=== PATIENT | male | born 1980 | race Caucasian/White ===

== ENCOUNTER 2018-04-28 10:09 | Emergency (ER) | payer BC ==
[2018-04-28 10:27] VITALS: BP 139/86
--- NOTE | 2018-04-28 10:41 | EDM.PDOC ---
ED HPI GENERAL MEDICAL PROBLEM - General Chief Complaint: General Stated Complaint: SCRATCH ON LEFT EYE Time Seen by Provider: 04/28/18 10:32 Source of Information: Reports: Patient History Limitations: Reports: No Limitations - History of Present Illness INITIAL COMMENTS - FREE TEXT/NARRATIVE: Patient presents with a red, irritated left eye that he thinks he scratched while putting in his contacts yesterday. He says this has happened before. He denies any visual change or loss. He denies any other pain or problems today. - Related Data Allergies Allergy/AdvReac Type Severity Reaction Status Date / Time No Known Drug Allergies Allergy Cannot Verified 04/28/18 10:27 Remember Home Meds: Home Meds atorvaSTATin [Lipitor] 10 mg PO DAILY 04/28/18 [History] Social & Family History - Tobacco Use Smoking Status *Q: Former Smoker Used Tobacco, but Quit: Yes Month/Year Tobacco Last Used: 2009 - Caffeine Use Caffeine Use: Reports: Soda - Alcohol Use Days Per Week of Alcohol Use: 1 Number of Drinks Per Day: 2 Total Drinks Per Week: 2 - Recreational Drug Use Recreational Drug Use: No ED ROS GENERAL - Review of Systems Review Of Systems: ROS reveals no pertinent complaints other than HPI. ED EXAM, GENERAL - Physical Exam Exam: See Below Exam Limited By: No Limitations General Appearance: Alert, WD/WN, No Apparent Distress Eye Exam: Right Eye: Normal Inspection, Left Eye: Conjunctival Injection, Other (Fluorescein stain uptake along a scratch of inferior conjunctiva), Bilateral Eye: EOMI, PERRL Ears: Normal External Exam, Hearing Grossly Normal Nose: Normal Inspection, No Blood Throat/Mouth: Normal Inspection, Normal Lips, Normal Voice, No Airway Compromise Head: Atraumatic, Normocephalic Neck: Normal Inspection, Full Range of Motion Respiratory/Chest: No Respiratory Distress, Lungs Clear, Normal Breath Sounds, No Accessory Muscle Use Cardiovascular: Regular Rate, Rhythm, No Murmur Extremities: Normal Inspection, Normal Range of Motion Neurological: Alert, Oriented, Normal Cognition, No Motor/Sensory Deficits Psychiatric: Normal Affect, Normal Mood Skin Exam: Warm, Dry, Intact, Normal Color, No Rash Course - Vital Signs Last Recorded V/S: Last Vital Signs Temp 98.0 F 04/28/18 10:23 Pulse 83 04/28/18 10:23 Resp 20 04/28/18 10:23 BP 139/86 04/28/18 10:23 Pulse Ox 97 04/28/18 10:23 - Re-Assessments/Exams Free Text/Narrative Re-Assessment/Exam: 04/28/18 11:05 An Rx for Cipro ophthalmic solution was sent with him to get from his pharmacy since we don't have available today in ER. Tetracaine ophthalmic drops (2) were placed in left eye. Discussed expectations and treatment plan. Patient stable at discharge. Departure - Departure Time of Disposition: 11:04 Disposition: Home, Self-Care 01 Condition: Good Clinical Impression: Abrasion of conjunctiva, left Qualifiers: Encounter type: initial encounter Qualified Code(s): S05.02XA - Injury of conjunctiva and corneal abrasion without foreign body, left eye, initial encounter - Discharge Information Referrals: Bladimir Russell [facility]ATOR [Primary Care Provider] - Additional Instructions: 1. Use the antibiotic eye drops as directed. 2. Follow up with your PCP or eye doctor if this isn't improving in 48 hours. 3. Follow up sooner, or go to ER if worsening.
[2018-04-28] MEDS ORDERED: Tetracaine HCl/PF 0.5% 4 ML Bottle EYELF ONE (10:46)
[2018-04-28] MEDS ORDERED: Ciprofloxacin 0.3% Ophth Soln 2.5 ML Bottle EYELF SCH (11:00)
== END 2018-04-28 11:10 | disposition home or self-care (01) ==
LOC: KA.ED 10:09
DX: S05.02XA Injury of conjunctiva and corneal abrasion without foreign body, left eye, initial encounter (principal); Z79.899 Other long term (current) drug therapy; Z87.891 Personal history of nicotine dependence; X50.9XXA Other and unspecified overexertion or strenuous movements or postures, initial encounter
CPT/HCPCS: 99283

== ENCOUNTER 2025-02-03 06:57 | Day surgery (SDC) | payer OTHER ==
[2025-02-03] MEDS ORDERED: Sodium Chloride 0.9% 10 ML Syringe FLUSH PRN (07:00)
[2025-02-03] MEDS ORDERED: Midazolam 1 MG/ML 2 ML SDV ONE (07:14)
[2025-02-03] MEDS ORDERED: Propofol 200 MG/20 ML SDV ONE (07:14)
[2025-02-03] MEDS: Lactated Ringers 1,000 ML IV SCH (07:33)
[2025-02-03 12:54] VITALS: BP 124/99; PULSE 75
== END 2025-02-03 10:38 | disposition home or self-care (01) ==
LOC: KA.SDS 06:57
PROVIDERS: ATTEND Family Medicine
DX: D12.3 Benign neoplasm of transverse colon (principal); K29.50 Unspecified chronic gastritis without bleeding; K64.4 Residual hemorrhoidal skin tags; K64.8 Other hemorrhoids; K44.9 Diaphragmatic hernia without obstruction or gangrene; K57.30 Diverticulosis of large intestine without perforation or abscess without bleeding; I10 Essential (primary) hypertension; E78.5 Hyperlipidemia, unspecified; K21.9 Gastro-esophageal reflux disease without esophagitis; Z79.899 Other long term (current) drug therapy
CPT/HCPCS: 00813; 88305; J1596; J2250; J2704; J7120